=== PATIENT | female | born 1995 | race Hispanic/Latino ===

== ENCOUNTER 2018-02-26 16:25 | Emergency (ER) | payer OTHER ==
--- NOTE | 2018-02-26 17:13 | RAD ---
3 VIEWS LEFT FOOT: Date: 02/26/18 HISTORY: Pain. Injury. COMPARISON: None. FINDINGS: Lisfranc alignment is maintained. Joint spaces are preserved. No fracture. No cortical irregularity o r periosteal reaction. There is mid foot soft tissue swelling. IMPRESSION: Soft tissue swelling, without evidence of fracture. POS: [facility]
== END 2018-02-26 17:51 | disposition home or self-care (01) ==
LOC: ERS 16:25
DX: S90.212A Contusion of left great toe with damage to nail, initial encounter (principal); W23.0XXA Caught, crushed, jammed, or pinched between moving objects, initial encounter

== ENCOUNTER 2018-11-06 14:39 | Outpatient (CLI) | payer OTHER ==
--- NOTE | 2018-11-06 15:57 | ULT ---
COMPLETE OB ULTRASOUND AT LESS THAN THIRTEEN WEEKS: HISTORY: Supervision of normal in the first trimester. FINDINGS: An early viable intrauterine fetus is noted, in variable presentation. Cervical length 5.6 cm. Amni otic fluid appears within normal limits. The placenta is primarily anterior. anatomy is not adequately evaluated because of the very early gestational age. BIOMETRY: BPD: 1.3 cm (out of range). HEAD CIRCUMFERENCE: 5.5 cm (12 weeks 0 days). ABDOMINAL CIRCUMFERENCE: 4.9 cm (12 weeks 0 days). FEMUR LENGTH: 0.9 cm (12 weeks 5 days). HEART RATE: 180 beats per minute. IMPRESSION: Early single viable intrauterine fetus at 12 weeks 0 days, with an estimated date of delivery of 05/07. Consider follow-up examination later in to evaluate for anatomy. POS: [facility]
== END 2018-11-06 14:40 | disposition home or self-care (01) ==
LOC: BICULT 14:39
PROVIDERS: ATTEND Nurse Practitioner
DX: Z34.81 Encounter for supervision of other normal pregnancy, first trimester (principal); Z3A.12 12 weeks gestation of pregnancy
CPT/HCPCS: 76805

== ENCOUNTER 2019-01-01 14:48 | Outpatient (CLI) | payer OTHER ==
--- NOTE | 2019-01-01 16:05 | ULT ---
OB ULTRASOUND: 01/01/19 HISTORY: anatomy, cervical length. FINDINGS: A single live intrauterine gestation is seen with measurements corresponding to an estimated gestatio nal age of 19 weeks, 1 day and ESTRADA at 05/27/19. Estimated weight measures 271 grams or 10 oz. T his corresponds to 19th percentile by Hadlock criteria. measurements are as follows: BPD 4.35 cm 19 weeks, 2 days HC 16.32 cm 19 weeks, 1 day AC 13.67 cm 19 weeks, 1 day FL 2.91 cm 19 weeks, 0 days heart rate measures 150 beats per minute. Placenta is anteriorly located without evidence of pl acenta previa. SHEILA measures 13.2 cm. Cervical length measures 3 cm. A three vessel cord, cord insertion, kidneys, bladder, stomach, four chambered heart, lateral v entricles, cerebellum, spine, lips/nose, upper and lower extremities are visualized. No definite feta l anomalies are seen. IMPRESSION: Single live IUP of 19 weeks, 1 day estimated gestational age and ESTRADA at 05/27/19. POS: [facility]
== END 2019-01-01 14:49 | disposition home or self-care (01) ==
LOC: BICULT 14:48
PROVIDERS: ATTEND Obstetrics & Gynecology
DX: Z34.82 Encounter for supervision of other normal pregnancy, second trimester (principal); Z3A.19 19 weeks gestation of pregnancy
CPT/HCPCS: 76805

== ENCOUNTER 2019-03-29 09:41 | Outpatient (CLI) | payer OTHER ==
--- NOTE | 2019-03-29 10:28 | ULT ---
EXAM: OB ultrasound COMPARISON: None HISTORY: female. Evaluate for growth and SHEILA. TECHNIQUE: Multiplanar grayscale and color Doppler images were obtained in a transabdominal ult rasound. FINDINGS: There is a single live intrauterine with heart rate of 169 bpm. Estimated weight is 1612 g. Average age of the fetus based off today's examination is 31 weeks 2 days. BPD 7.92 cm -- 31 weeks 6 days HC 29.22 cm -- 32 weeks 2 days AC 26.05 cm -- 30 weeks 2 days FL 5.86 cm -- 30 weeks 5 days The placenta is anterior in location without focal abnormality. SHEILA is 16.07 cm which is normal. The cervix is normal in length. There is no evidence of placenta previa. IMPRESSION: Single live intrauterine with estimated age of 31 weeks 2 days.
== END 2019-03-29 09:42 | disposition home or self-care (01) ==
LOC: BICULT 09:41
PROVIDERS: ATTEND Obstetrics & Gynecology
DX: Z34.83 Encounter for supervision of other normal pregnancy, third trimester (principal); Z3A.31 31 weeks gestation of pregnancy
CPT/HCPCS: 76816

== ENCOUNTER 2019-05-24 05:30 | Inpatient (IN) | payer MEDICAID, OTHER, SELFPAY ==
[2019-05-24] MEDS ORDERED: Ondansetron PF 4 MG/2 ML Vial IVP PRN ×3 (07:15→20:04)
[2019-05-24] MEDS ORDERED: Ibuprofen 800 MG TAB PO PRN (07:15)
[2019-05-24] MEDS ORDERED: NS / Oxytocin 40 units/1000ml 1,000 ML IV PRN (07:15)
[2019-05-24] MEDS ORDERED: Docusate 100 MG CAP PO PRN (07:15)
[2019-05-24] MEDS ORDERED: Promethazine HCl 25 MG/ML VIAL IM PRN ×2 (07:15→13:55)
[2019-05-24] MEDS ORDERED: Lidocaine 1% (PF) 30 ML VIAL SC PRN (07:15)
[2019-05-24] MEDS ORDERED: hydrALAZINE 20 MG/ML VIAL SLOW IVP PRN ×2 (07:15→20:04)
[2019-05-24] MEDS ORDERED: HYDROcodone/Acetaminophen 5/325 mg Tablet PO PRN ×2 (07:15)
[2019-05-24] MEDS ORDERED: Butorphanol Tartrate 1 MG/ML VIAL SLOW IVP PRN (07:15)
[2019-05-24 08:08] VITALS: BMI 27.4
[2019-05-24 08:50] LABS: Hemoglobin 13.4 g/dL (12.0-16.0); Mean Corpuscular HGB CONC 34.4 g/dL (32.0-36.0); Mean Corpuscular Hemoglobin 31.3 pg (27.0-31.0); Mean Platelet Volume 6.7 fL (7.4-10.4); Platelet Count 280 thou/uL (130-400); RBC Distribution Width 12.3 % (11.5-14.5); Red Blood Cell (RBC) Count 4.27 mill/uL (4.20-5.40); White Blood Cell (WBC) Count 8.8 thou/uL (4.8-10.8)
[2019-05-24] MEDS: Lactated Ringer's 1,000 ML IV SCH ×3 (09:15→15:25)
[2019-05-24 09:30] LABS: Syphilis Antibody Nonreactive (Nonreactive); Syphilis Antibody Index 0.05 S/CO (<1.00 Non-Reactive)
[2019-05-24 09:31] LABS: HBSAg Index 0.18 S/CO (0-0.99); Hep B Surf Ag Non-Reactive S/CO (NonReactive)
[2019-05-24] MEDS ORDERED: Misoprostol 100 MCG TAB ONE (09:35)
[2019-05-24] MEDS: Misoprostol 100 MCG TAB VAG SCH ×3 (09:45→20:51)
[2019-05-24] MEDS ORDERED: Terbutaline Sulfate 1 MG/ML VIAL ONE (11:17)
[2019-05-24] MEDS ORDERED: Fentanyl 4 mcg/Bup 0.1% Cadd 100 ML ONE (13:17)
[2019-05-24] MEDS ORDERED: ePHEDrine/0.9% NaCl/PF SYRINGE 50 mg/10 ml SLOW IVP PRN (13:55)
[2019-05-24] MEDS ORDERED: Acetaminophen 325 MG TAB PO PRN (13:55)
[2019-05-24] MEDS ORDERED: Naloxone HCl 0.4 mg/ml Vial IVP PRN ×2 (13:55)
[2019-05-24] MEDS ORDERED: Lactated Ringer's 500 ML IV PRN (13:55)
[2019-05-24] MEDS ORDERED: diphenhydrAMINE 50 MG/ML VIAL IVP PRN (13:55)
[2019-05-24] MEDS ORDERED: Communication Order-Pharmacy FS PRN (14:00)
[2019-05-24] MEDS ORDERED: Fentanyl 4 mcg/Bupivacaine 0.1% Cassette 100 ML EPIDURAL SCH (14:00)
[2019-05-24] MEDS ORDERED: Bupivacaine 0.25% HCL 30 ML VIAL ONE (15:00)
[2019-05-24] MEDS: NS w/ Oxytocin 10 units 500 ML IV SCH ×3 (15:31→17:55)
[2019-05-24] MEDS ORDERED: Benzocaine-Menthol 82.5 ML CAN TOP PRN (20:04)
[2019-05-24] MEDS ORDERED: Acetaminophen/Codeine 30-300mg Tablet PO PRN ×2 (20:04)
[2019-05-24] MEDS ORDERED: Adacel (T-DAP) 0.5 ML SYRINGE IM ONE (20:04)
[2019-05-24] MEDS ORDERED: Bisacodyl 10 MG SUPP PR PRN (20:04)
[2019-05-24] MEDS ORDERED: Milk Of Magnesia 30 ML UDCUP PO PRN (20:04)
[2019-05-24] MEDS ORDERED: NS / Oxytocin 40 units/1000ml 1,000 ML IV SCH (20:15)
[2019-05-25] MEDS: Docusate Calcium (SURFAK) 240 MG CAP PO SCH ×3 (03:02→21:11)
[2019-05-25] MEDS: Ibuprofen 800 MG TAB PO SCH ×5 (03:02→21:11)
[2019-05-25] MEDS: Misoprostol 100 MCG TAB VAG SCH ×4 (03:36→11:59)
[2019-05-25] MEDS: Prenatal Vitamin 1 TAB PO SCH (10:56)
[2019-05-25] MEDS: Lactated Ringer's 1,000 ML IV SCH ×2 (11:41→16:35)
[2019-05-25] MEDS: Ferrous Sulfate 325 MG TAB PO SCH ×2 (11:41→16:40)
[2019-05-26] MEDS: Lactated Ringer's 1,000 ML IV SCH ×2 (04:59→09:04)
[2019-05-26] MEDS: Ibuprofen 800 MG TAB PO SCH (06:06)
[2019-05-26 08:32] VITALS: BP 108/65; TEMP 98.2
[2019-05-26] MEDS: Prenatal Vitamin 1 TAB PO SCH (09:03)
[2019-05-26] MEDS: Ferrous Sulfate 325 MG TAB PO SCH (09:04)
[2019-05-26] MEDS: Docusate Calcium (SURFAK) 240 MG CAP PO SCH (09:04)
--- NOTE | 2019-05-26 14:39 | OP ---
DATE OF PROCEDURE: 05/24/2019 PREOPERATIVE DIAGNOSES: 1. A 24-year-old female, G2, P1-0-0-1 with an induction of labor for post due date. 2. Group B Streptococcus negative. 3. Non-reassuring heart tracing after first dose of Cytotec. POSTOPERATIVE DIAGNOSES: 1. A 24-year-old female, G2, P1-0-0-1 with an induction of labor for post due date. 2. Group B Streptococcus negative. 3. Non-reassuring heart tracing after first dose of Cytotec. 4. Live-born female with Apgars of 8 and 9 at one and five minutes respectively, weighing 6 pounds and 8 ounces. PROCEDURES PERFORMED: 1. Spontaneous vaginal delivery. 2. Repair of a first-degree perineal laceration. ANESTHESIA: Epidural. ESTIMATED BLOOD LOSS: 100 mL. CLINICAL HISTORY: The patient is a 24-year-old female who was seen for the entirety of her care at [facility]. She has had a previous vaginal delivery and desired a natural delivery for this . She refused an induction at 39 weeks, but was advised that she should not go more than a week after her due date. The patient had an uneventful course and was admitted on the 24 of May with an induction of labor by Cytotec. She was noted to be 1 cm and approximately 50% effaced per nursing exam. She did receive the Cytotec x1 and immediately responded with rapid successive contractions and overall, non-reassuring heart tracing was recurrent late. The patient was then examined by the physician, and an amniotomy was performed with clear fluid. This fluid was enough to flood the bed and flushed out the remaining Cytotec. The patient thereafter recovered to a category 2 tracing that was moderate to minimal variability and tachycardic for the majority of the labor course. She also had a cervix that was displaced towards the patient's maternal right side. It was advised for the patient to have an epidural for management of relaxing the pelvis and allowing for the cervix to drop down into the canal. The patient did receive an epidural and afterwards had a few more tracing issues secondary to analgesia; however, recovered and continued to progress. When she was settled in the pelvis, the patient actually made rapid change and was noted to be complete and +2 station. DESCRIPTION OF PROCEDURE: With good maternal effort, the patient was able to push the vertex and one contraction to delivery of the head, the anterior shoulder followed by the posterior shoulder followed by the remainder of the infant's body was delivered. The cord was doubly clamped and cut. The vigorous female gave a good cry. The infant was placed on the maternal abdomen and stimulated by the nurses in attendance of the delivery. Cord blood was obtained. The placenta was delivered spontaneously intact with a three-vessel cord. Exploration of the cervix, vagina, introitus noted a small first-degree laceration at the base in the midline of the vagina, and this was repaired due to location as a second-degree with a deeper reapproximating suture, and a subcutaneous closure that was buried behind the hymen with excellent hemostasis. The patient tolerated the procedure well and recovered after being cleansed and de-draped in her Labor and Delivery room with her . Again, the infant was a live born female with Apgars of 8 and 9 at one and five minutes respectively with weighing 6 pounds 8 ounces. All needle, sponge, lap, and instrument counts were correct x2 at the end of the procedure. There were no other issues surrounding this delivery. Job ID: [id number]
== END 2019-05-26 13:13 | disposition home or self-care (01) | DRG 807 ==
LOC: L&D 07:12 → 3SW 23:53
PROVIDERS: ADMIT Obstetrics & Gynecology; ATTEND Obstetrics & Gynecology
PROC: 10907ZC Drainage of Amniotic Fluid, Therapeutic from Products of Conception, Via Natural or Artificial Opening (ICD-10-PCS; principal; 2019-05-24)
PROC: 10E0XZZ Delivery of Products of Conception, External Approach (ICD-10-PCS; 2019-05-24)
PROC: 10H07YZ Insertion of Other Device into Products of Conception, Via Natural or Artificial Opening (ICD-10-PCS; 2019-05-24)
PROC: 3E033VJ Introduction of Other Hormone into Peripheral Vein, Percutaneous Approach (ICD-10-PCS; 2019-05-24)
PROC: 0HQ9XZZ Repair Perineum Skin, External Approach (ICD-10-PCS; 2019-05-24)
DX: O48.0 Post-term pregnancy (principal); Z37.0 Single live birth; O70.0 First degree perineal laceration during delivery; O76 Abnormality in fetal heart rate and rhythm complicating labor and delivery; Z3A.40 40 weeks gestation of pregnancy
CPT/HCPCS: 36415; 51702; 85027; 86780; 86850; 86900; 86901; 87340; J2590; J3105; S0020

== ENCOUNTER 2022-07-04 06:03 | Emergency (ER) | payer MEDICAID, SELFPAY ==
[2022-07-04 06:44] LABS: #Eosinphils 0.1 thou/uL (0.0-0.7); #Lymphocytes 2.4 thou/uL (1.20-3.40); #Monocytes 0.7 thou/uL (0.11-0.59); #Neutrophils 5.7 thou/uL (1.40-6.50); %Basophils 0.3 % (0.0-1.0); %Eosinophils 1.7 % (0.0-10.0); %Lymphocytes 26.8 % (21.0-51.0); %Monocytes 8.1 % (0.0-10.0); %Neutrophils 63.2 % (42.0-75.0); Hemoglobin 13.5 g/dL (12.0-16.0); Mean Corpuscular HGB CONC 33.5 g/dL (32.0-36.0); Mean Corpuscular Hemoglobin 31.6 pg (27.0-31.0); Mean Corpuscular Volume 94.4 fl (78.0-98.0); Mean Platelet Volume 6.5 fL (7.4-10.4); Platelet Count 313 10x3/uL (130-400); RBC Distribution Width 11.5 % (11.5-14.5); Red Blood Cell (RBC) Count 4.26 mill/uL (4.20-5.40)
[2022-07-04 06:46] LABS: Bacteria/HPF None Seen HPF (None Seen); Bilirubin Negative (Negative); Blood, Urine 3+ (Negative); Clarity Turbid (Clear); Glucose, Urine (Dipstick) Normal (Negative); Ketone, Urine Negative (Negative); Leukocyte 75 Leu/uL (Negative); Nitrite Negative (Negative); Protein, Urine (Dipstick) 10 mg/dL (Neg-Trace); RBC/HPF Greater than 50 HPF (0-3); Specific Gravity, Urine 1.018 (1.002-1.036); Squamous Epithelial 0-3 HPF (0-3); Urobilinogen Normal mg/dL (Less than 2)
[2022-07-04 07:05] LABS: ALT (SGPT) 15 U/L (8-55); AST (SGOT) 12 U/L (5-34); Albumin 3.8 g/dL (3.5-5.0); Alkaline Phosphatase 74 U/L (40-110); Anion Gap 12 mmol/L (10-20); BUN (Urea Nitrogen) 7 mg/dL (7.0-18.7); Bilirubin, Total 0.6 mg/dL (0.2-1.2); Calc. Creatinine Clearance 0 mL/min (70-130); Calcium 8.9 mg/dL (7.8-10.44); Carbon Dioxide 21 mmol/L (22-29); Chloride 106 mmol/L (98-107); Estimated GFR 126; Glucose 105 mg/dL (70-105); Potassium 3.8 mmol/L (3.5-5.1); Protein, Total 6.8 g/dL (6.0-8.3); Sodium 135 mmol/L (136-145)
== END 2022-07-04 08:38 | disposition home or self-care (01) ==
LOC: ERS 06:03
DX: O36.80X0 Pregnancy with inconclusive fetal viability, not applicable or unspecified (principal)
CPT/HCPCS: 76856; 80053; 81003; 81015; 84702; 85025; 86900; 86901; 87086